=== PATIENT | male | born 1990 | race Caucasian/White ===

== ENCOUNTER 2017-04-16 05:43 | Emergency (ER) | payer MEDICAID, OTHER ==
[~2017-04-16] VITALS: Ht 175.3 cm; Wt 116.0 kg
[~2017-04-16 05:43] MED LIST: CYCL-319 PO; HYDR-3498 PO; NAPR-260 PO; OXYC-536 PO
[2017-04-16 05:52] VITALS: Ht 175.3 cm; Wt 116.0 kg
[2017-04-16] MEDS ORDERED: ONDANSETRON 4 MG INJ IV STA (06:10)
[2017-04-16] MEDS ORDERED: SOD CHLORIDE 0.9% 1,000 ML IV STA (06:10)
[2017-04-16] MEDS ORDERED: KETOROLAC 15 MG INJ IV STA (06:10)
[2017-04-16] MEDS ORDERED: morphine 4 MG/ML VIAL IV STA (06:10)
--- NOTE | 2017-04-16 06:32 | ERA ---
ER Documentation Chief Complaint Date/Time DATE: 04/16/17 TIME: 06:25 Chief Complaint upper abd pain x 2 days HPI This is a 26-year-old male with no relevant medical problems presenting to the emergency department complaining of right upper quadrant abdominal pain for the past 2 days it has worsened today. Patient rates the pain as constant, sharp, 10 out of 10 and increased with taking a deep breath in. He admits to associated nausea with an episode of vomiting yesterday. Denies any fever/ chills, constipation, diarrhea. Patient states that he is tried Prilosec for the past 2 days without any relief. Last meal was 6pm yesterday however he vomited an hour after eating. He admits to having occasional beer once every 3 days and marijuana use. Denies any alcohol or drug use in the past 2 days. Denies any abdominal surgeries ROS All systems reviewed and are negative except as per history of present illness. Medications Home Meds Active Scripts Ondansetron (Ondansetron Odt) 4 Mg Tab.rapdis, 4 MG PO Q6H Y for NAUSEA AND/OR VOMITING, #20 TAB Prov:DRISS KAPADIA PA-C 04/16/17 Hydrocodone/Acetaminophen ([place] 5-325 Tablet) 1 Each Tablet, 1 TAB PO Q6H Y for PAIN, #20 TAB Prov:DRISS KAPADIA PA-C 04/16/17 Cyclobenzaprine Hcl* (Cyclobenzaprine Hcl*) 10 Mg Tablet, 10 MG PO TID, #15 TAB Prov:KEVIN CHOU PA-C 01/31/16 Naproxen* (Naprosyn*) 500 Mg Tablet, 500 MG PO BID Y for PAIN AND/OR INFLAMMATION, #30 TAB Prov:KEVIN CHOU PA-C 01/31/16 Hydrocodone Bit-Acetaminophen* ([place]*) 5-325 Mg Tab, 1 TAB PO Q6 Y for PAIN, # 10 TAB Prov:KEVIN CHOU PA-C 01/31/16 Reported Medications Oxycodone Hcl* (Oxycontin*) 15 Mg Tab.sr.12h, 15 MG PO DAILY Y for SEVERE PAIN LEVEL 7-10, TAB 10/06/14 Allergies Allergies: Coded Allergies: No Known Allergy (Unverified , 10/06/14) PMhx/Soc Medical and Surgical Hx: pt denies Surgical Hx History of Surgery: No Anesthesia Reaction: No Hx Neurological Disorder: No Hx Respiratory Disorders: Yes (ASTHMA) Hx Cardiac Disorders: No Hx Psychiatric Problems: No Hx Miscellaneous Medical Probl: No Hx Alcohol Use: Yes Hx Substance Use: Yes (MJ) Hx Tobacco Use: Yes Smoking Status: Former smoker Physical Exam Vitals Vital Signs Date Time Temp Pulse Resp B/P Pulse Ox O2 Delivery O2 Flow Rate FiO2 04/16/17 05:52 97.8 72 20 176/90 100 Physical Exam GENERAL: well-developed/well-nourished, in no apparent distress, non-toxic appearing HENT: NC/AT, moist mucous membranes EYES: Conjunctiva normal NECK: Supple, no lymphadenopathy PULM: CTA bilaterally, no rales, rhonchi, or wheezing heard CV: Normal S1S2, RRR, good capillary refill GI: Soft, non-distended, tender to palpation epigastric and right upper quadrant. Positive Monroe sign Normal bowel sounds, no masses or organomegaly felt on exam No gross peritonitis, no bruits Negative Rovsing, negative McBurney's point, Negative CVAT BACK: No masses EXT: No clubbing, cyanosis, or edema NEURO: Alert and Orientated SKIN: Intact, normal turgor PSYCH: Normal mood and mentation Result Diagram: 04/16/17 0652 04/16/17 0652 Results 24 hrs Laboratory Tests Test 04/16/17 06:52 04/16/17 06:53 White Blood Count 9.910^3/ul Red Blood Count 5.7010^6/ul Hemoglobin 14.9g/dl Hematocrit 46.1% Mean Corpuscular Volume 80.9fl Mean Corpuscular Hemoglobin 26.1pg Mean Corpuscular Hemoglobin Concent 32.3g/dl Red Cell Distribution Width 13.7% Platelet Count 45335^3/UL Mean Platelet Volume 11.1fl Neutrophils % 79.5% Lymphocytes % 12.1% Monocytes % 5.8% Eosinophils % 2.0% Basophils % 0.3% Nucleated Red Blood Cells % 0.0/100WBC Neutrophils # 7.910^3/ul Lymphocytes # 1.210^3/ul Monocytes # 0.610^3/ul Eosinophils # 0.210^3/ul Basophils # 0.010^3/ul Nucleated Red Blood Cells # 0.010^3/ul Sodium Level 144mmol/L Potassium Level 4.0mmol/L Chloride Level 105mmol/L Carbon Dioxide Level 29mmol/L Anion Gap 14 Blood Urea Nitrogen 10mg/dl Creatinine 0.73mg/dl Glucose Level 115mg/dl Calcium Level 8.6mg/dl Total Bilirubin 0.2mg/dl Direct Bilirubin 0.00mg/dl Indirect Bilirubin 0.2mg/dl Aspartate Amino Transf (AST/SGOT) 28IU/L Alanine Aminotransferase (ALT/SGPT) 49IU/L Alkaline Phosphatase 58IU/L Total Protein 7.9g/dl Albumin 5.0g/dl Globulin 2.90g/dl Albumin/Globulin Ratio 1.72 Lipase 81U/L Urine Color LT. YELLOW Urine Clarity CLEAR Urine pH 7.0 Urine Specific [place] 1.010 Urine Ketones NEGATIVE Urine Nitrite NEGATIVE Urine Bilirubin NEGATIVE Urine Urobilinogen 0.2 E.U./dL Urine Leukocyte Esterase NEGATIVE Urine Microscopic RBC 0-2/HPF Urine Microscopic WBC 0-2/HPF Urine Epithelial Cells RARE Urine Bacteria RARE Urine Hemoglobin NEGATIVE Urine Glucose NEGATIVE% Urine Total Protein TRACE Current Medications Medications (Trade) Dose Ordered Sig/Panda Route PRN Reason Start Time Stop Time Status Last Admin Dose Admin Sodium Chloride (NS) 1,000 ml @ 1,000 mls/hr Q1H STAT IV 04/16/17 06:10 04/16/17 07:09 DC 04/16/17 06:45 Morphine Sulfate (morphine) 8 mg ONCE STAT IV 04/16/17 06:10 04/16/17 06:11 DC 04/16/17 06:45 Ondansetron HCl (Zofran Inj) 4 mg ONCE STAT IV 04/16/17 06:10 04/16/17 06:11 DC 04/16/17 06:44 Ketorolac Tromethamine (Toradol) 15 mg ONCE STAT IV 04/16/17 06:10 04/16/17 06:11 DC 04/16/17 06:44 Procedures/MDM This is a 26-year-old male presenting to the emergency department complaining of right upper quadrant abdominal pain due to cholelithiasis. I doubt patient has sepsis, choledocholithiasis, cholecystitis or cholangitis, pancreatitis or other acute abdomen conditions due to physical examination and diagnostic testing. The gallbladder ultrasound did show a thickened gallbladder wall however there was no evidence of pericholecystic fluid. I doubt cholecystitis at this time and patient is appropriate for outpatient trial. My supervising physician was consulted and he agrees with this. Patient appears well and nontoxic appearing with stable vital signs. IV access established. Lab work was drawn. CBC did not show any evidence of leukocytosis or anemia. CMP did not show any evidence of renal, liver, or electrolyte abnormalities. Lipase was normal. UA did not show any evidence of hemoglobin or urinary tract infection. Patient's pain and nausea was stabilized in the ED Diagnostic testing and instructions were given to patient. Pain control and antiemetic prescriptions were provided for outpatient self-care. Discussed with patient to follow-up with primary care for GI referral. Precautions were given to return to the ER for fever, intractable pain, increased vomiting, and other worsening signs and symptoms. Patient expressed agreement and understanding of this plan. Gallbladder US: 1. Diffuse fatty infiltration of the liver. 2. Cholelithiasis with thickened gallbladder wall. Departure Diagnosis: Primary Impression: Cholelithiasis Condition: Stable DRISS KAPADIA PA-C Apr 16, 2017 06:32
--- NOTE | 2017-04-16 06:46 | RADRPT ---
PROCEDURE: ULTRASOUND LIMITED ABDOMEN CLINICAL INDICATION: 26-year-old male with abdominal pain. TECHNIQUE: Multiple sonographic of the right upper quadrant of the abdomen were obtained. The imag es were reviewed on a PACS workstation. COMPARISON: None. FINDINGS: The pancreas is not well visualized secondary to overlying bowel gas. The liver displays diffuse increased echogenicity consistent with fatty infiltration. The liver charbel ures 19.4 cm in length. No evidence of intrahepatic biliary ductal dilatation is seen. The portal a nd hepatic veins are unremarkable. The gallbladder contains multiple mobile shadowing stones. The gallbladder wall is thickened measur ing 4.1 mm. No pericholecystic fluid is seen. The common bile duct measures 3.2 mm and is not dilat ed. The right kidney displays normal echogenicity. The right kidney measures 11.2 x 4.8 x 5.2 cm. No [place] iectasis or hydronephrosis is seen. No free fluid is seen. IMPRESSION: 1. Diffuse fatty infiltration of the liver. 2. Cholelithiasis with thickened gallbladder wall. .Michael Tijerina MD, Date Time Electronically viewed and signed by .Michael Tijerina MD, on 04/16/2017 06:45 .M/
[2017-04-16 06:58] LABS: ADD SCAN DIFF NO
[2017-04-16 07:07] LABS: BASOPHILS % 0.3 % (0.0-2.0); EOSINOPHILS # 0.2 10^3/ul (0.0-0.5); HEMATOCRIT 46.1 % (42.0-52.0); HEMOGLOBIN 14.9 g/dl (14.0-18.0); LYMPHOCYTES # 1.2 10^3/ul (0.8-2.9); LYMPHOCYTES % 12.1 % (15.0-51.0); MEAN CORPUSCULAR HEMOGLOBIN 26.1 pg (29.0-33.0); MEAN CORPUSCULAR HGB CONC 32.3 g/dl (32.0-37.0); MEAN CORPUSCULAR VOLUME 80.9 fl (82.0-101.0); MEAN PLATELET VOLUME 11.1 fl (7.4-10.4); MONOCYTE # 0.6 10^3/ul (0.3-0.9); MONOCYTES % 5.8 % (0.0-11.0); NEUTROPHIL # 7.9 10^3/ul (1.6-7.5); NEUTROPHILS % 79.5 % (39.0-77.0); PLATELET COUNT 259 10^3/UL (140-415); RED CELL DISTRIBUTION WIDTH 13.7 % (11.5-14.5); WHITE BLOOD COUNT 9.9 10^3/ul (4.8-10.8)
[2017-04-16 07:22] LABS: ALBUMIN/GLOBULIN RATIO 1.72; BILIRUBIN,INDIRECT 0.2 mg/dl (0-1.1); BILIRUBIN,TOTAL 0.2 mg/dl (0.2-1.3); CALCIUM 8.6 mg/dl (8.4-10.2); CREATININE 0.73 mg/dl (0.61-1.24); TOTAL PROTEIN 7.9 g/dl (6.1-8.1)
[2017-04-16 07:26] LABS: ADD UMIC YES; URINE BILIRUBIN (Dip) NEGATIVE (NEGATIVE); URINE BLOOD (Dip) NEGATIVE (NEGATIVE); URINE COLOR LT. YELLOW (YELLOW); URINE GLUCOSE (Dip) NEGATIVE (NEGATIVE); URINE KETONES (Dip) NEGATIVE (NEGATIVE); URINE LEUKOCYTE ESTERASE (Dip) NEGATIVE (NEGATIVE); URINE NITRITE (Dip) NEGATIVE (NEGATIVE); URINE TOTAL PROTEIN (Dip) TRACE (NEGATIVE); URINE UROBILINOGEN (Dip) 0.2 E.U./dL (0.1-1.0)
[2017-04-16 08:07] LABS: BACTERIA,URINE RARE; URINE RBCS 0-2 /HPF (0)
[2017-04-16] MEDS ORDERED: ONDA4TAB14 PO (08:11)
[2017-04-16] MEDS ORDERED: HYDR-906 PO (08:11)
== END 2017-04-16 08:27 | disposition home or self-care (01) ==
LOC: FTE 05:43
DX: K80.20 Calculus of gallbladder without cholecystitis without obstruction (principal); J45.909 Unspecified asthma, uncomplicated; R11.2 Nausea with vomiting, unspecified; Z87.891 Personal history of nicotine dependence
CPT/HCPCS: 36415; 76705; 80053; 81001; 83690; 85025; 96374; 96375; J1885; J2270; J2405; J7030; Z7502

== ENCOUNTER 2017-11-25 14:52 | Emergency (ER) | END 2017-11-25 15:38 | disposition home or self-care (01) ==

== ENCOUNTER 2019-06-13 21:08 | Emergency (ER) | payer SELFPAY ==
[~2019-06-13] VITALS: Ht 188 cm; Wt 101.0 kg
[~2019-06-13 21:08] MED LIST changes: +ALBU18HF INHALATION; +BENZ200C68 PO; -CYCL-319 PO; +CYCL10TA7 PO; +HYDR-4011 PO; +IBUP-1542 PO; -NAPR-260 PO; +NAPR-985 PO; +ONDA4TAB14 PO; +OSEL75CA23 PO
[2019-06-13 21:23] VITALS: BP 159/98; PULSE 80; RESP 20; Ht 188 cm; Wt 101.0 kg
[2019-06-13] MEDS ORDERED: IBUPROFEN 600 MG TAB PO ONE (22:00)
--- NOTE | 2019-06-14 01:01 | ERD ---
ER Documentation Chief Complaint Chief Complaint RIGHT KNEE INJ; METAL RACK FELL ON X2DAYS AGO HPI 28-year-old male presents to the emergency department complaining of right knee pain after injury 2 days ago. The patient states he was working when he accidentally slammed a metal tray into his right knee. He works at a restaurant. He reports pain which is rated 6/10 in severity and worse with movement and walking. He describes a sharp sensation. He tried ibuprofen at home with some relief. He denies any falls, head injury, loss of consciousness, or other symptoms or injuries at this time. ROS All systems reviewed and are negative except as per history of present illness. Medications Home Meds Active Scripts Ibuprofen* (Motrin*) 600 Mg Tab, 600 MG PO Q6, #30 TAB Prov:ADELAIDE WALDROP PA-C 06/13/19 Benzonatate* (Benzonatate*) 200 Mg Capsule, 200 MG PO TID PRN for COUGH, #20 CAP Prov:ADELAIDE WALDROP PA-C 11/25/17 Oseltamivir Phosphate* (Tamiflu*) 75 Mg Capsule, 75 MG PO BID for 5 Days, #10 CAP Prov:ADELAIDE WALDROP PA-C 11/25/17 Albuterol Sulfate* (Ventolin HFA*) 18 Gm Hfa.aer.ad, 2 PUFF INHALATION Q4H, #1 INHALER Prov:ADELAIDE WALDROP PA-C 11/25/17 Ondansetron (Ondansetron Odt) 4 Mg Tab.rapdis, 4 MG PO Q6H PRN for NAUSEA AND/OR VOMITING, #20 TAB Prov:DRISS KAPADIA PA-C 04/16/17 Hydrocodone/Acetaminophen ([place] 5-325 Tablet) 1 Each Tablet, 1 TAB PO Q6H PRN for PAIN, #20 TAB Prov:DRISS KAPADIA PA-C 04/16/17 Cyclobenzaprine Hcl* (Cyclobenzaprine Hcl*) 10 Mg Tablet, 10 MG PO TID, #15 TAB Prov:KEVIN CHOU PA-C 01/31/16 Naproxen* (Naprosyn*) 500 Mg Tablet, 500 MG PO BID PRN for PAIN AND/OR INFLAMMATION, #30 TAB Prov:KEVIN CHOU PA-C 01/31/16 Hydrocodone Bit-Acetaminophen* ([place]*) 5-325 Mg Tab, 1 TAB PO Q6 PRN for PAIN, #10 TAB Prov:KEVIN CHOU PA-C 01/31/16 Reported Medications Oxycodone Hcl* (Oxycontin*) 15 Mg Tab.sr.12h, 15 MG PO DAILY PRN for SEVERE PAIN LEVEL 7-10, TAB 10/06/14 Allergies Allergies: Coded Allergies: No Known Allergy (Unverified , 10/06/14) PMhx/Soc History of Surgery: No Anesthesia Reaction: No Hx Neurological Disorder: No Hx Respiratory Disorders: Yes (ASTHMA) Hx Cardiac Disorders: No Hx Psychiatric Problems: No Hx Miscellaneous Medical Probl: No Hx Alcohol Use: Yes Hx Substance Use: Yes (MJ) Hx Tobacco Use: Yes Smoking Status: Current every day smoker FmHx Family History: No diabetes Physical Exam Vitals Vital Signs Date Temp Pulse Resp B/P (MAP) Pulse Ox O2 O2 Flow FiO2 Time Delivery Rate 06/13/19 98.3 80 20 159/98 99 21:23 (118) Physical Exam Const: No acute distress Head: Atraumatic Eyes: Normal Conjunctiva ENT: Normal External Ears, Nose and Mouth. Neck: Full range of motion. No meningismus. Resp: Clear to auscultation bilaterally Cardio: Regular rate and rhythm, no murmurs Skin: No petechiae or rashes Back: No midline or flank tenderness Ext: Tenderness palpation of the right anterior knee. No obvious joint effusion. No warmth. No open fracture or obvious deformity. The patient is neurovascularly intact distally. Neur: Awake and alert Psych: Normal Mood and Affect Results 24 hrs Current Medications Medications Dose Sig/Panda Start Time Status Last (Trade) Ordered Route PRN Stop Time Admin Dose Reason Admin Ibuprofen 600 mg ONCE ONCE 06/13/19 DC 06/13/19 (Motrin) PO 22:00 06/13/19 22:07 22:01 [place] [id number] Radiology Main Line: [phone] DIAGNOSTIC IMAGING REPORT Patient: JORDANA MERCER : 1990 Age: 28 Sex: M MR #: [id number] DOS: 06/13/19 0000 Ordering MD: ADELAIDE WALDROP PA-C Location: [facility] Room/Bed: PROCEDURE: XR Knee. CLINICAL INDICATION: Pain post injury TECHNIQUE: Three views of the right knee are available for review. COMPARISON: None available FINDINGS: There is no acute fracture or dislocation. The joint spaces are maintained. A small joint effusion is present. The soft tissues are unremarkable. RPTAT: ZZ IMPRESSION: 1. No acute bony abnormality. .Corrie Monroy MD, Date Time Electronically viewed and signed by .Corrie Monroy MD, on 06/13/2019 22:48 .T/ CC: ADELAIDE WALDROP PA-C [phone] Procedures/MDM 28-year-old male presents to the emergency department complaining of right knee injury. X-ray showed no sign of acute fracture and was interpreted by the radiologist. History, physical examination, work-up most consistent with contusion of the right knee. Patient's extremity symptoms have stabilized while they have been evaluated in the department and are appropriate for outpatient follow up. No evidence of compartment syndrome, neurologic injury, vascular injury, open joint, open fracture, tendon laceration, or foreign body. Patient's blood pressure was elevated (>120/80) but appears stable without evidence of hypertension emergency or urgency. The patient is to follow-up and pursue outpatient monitoring and therapy with their primary care physician within 1 week and return immediately if they have any new, worsening, or co ncerning symptoms. Disclaimer: Inadvertent spelling and grammatical errors are likely due to EHR/dictation software use and do not reflect on the overall quality of patient care. Also, please note that the electronic time recorded on this note does not necessarily reflect the actual time of the patient encounter. Departure Diagnosis: Primary Impression: Right knee pain Chronicity: acute Qualified Codes: M25.561 - Pain in right knee Condition: Fair Patient Instructions: Contusion, Lower Extremity Referrals: COMM[facility]ITY CLINICS YOU HAVE RECEIVED A MEDICAL SCREENING EXAM AND THE RESULTS INDICATE THAT YOU DO NOT HAVE A CONDITION THAT REQUIRES URGENT TREATMENT IN THE EMERGENCY DEPARTMENT. FURTHER EVALUATION AND TREATMENT OF YOUR CONDITION CAN WAIT UNTIL YOU ARE SEEN IN YOUR DOCTORS OFFICE WITHIN THE NEXT 1-2 DAYS. IT IS YOUR RESPONSIBILITY TO M ELÍAS AN APPOINTMENT FOR FOLOW-UP CARE. IF YOU HAVE A PRIMARY DOCTOR --you should call your primary doctor and schedule an appointment IF YOU DO NOT HAVE A PRIMARY DOCTOR YOU CAN CALL OUR PHYSICIAN REFERRAL HOTLINE AT IF YOU CAN NOT AFFORD TO SEE A PHYSICIAN YOU CAN CHOSE FROM THE FOLLOWING [facility] [address] [facility]. [facility] [address] [facility]. [facility] [address] [facility] [facility] [address] [facility]. [facility] [address] [facility]. [facility] [address] Additional Instructions: Call your primary care doctor TOMORROW for an appointment during the next 1-2 days.See the doctor sooner or return here if your condition worsens before your appointment time. ADELAIDE WALDROP PA-C Jun 14, 2019 01:01
== END 2019-06-13 23:40 | disposition home or self-care (01) ==
LOC: FTE 21:08
DX: M25.561 Pain in right knee (principal); J45.909 Unspecified asthma, uncomplicated; F17.210 Nicotine dependence, cigarettes, uncomplicated
CPT/HCPCS: 73562